=== PATIENT | male | born 1975 ===

== ENCOUNTER 2017-11-30 07:17 | Emergency (ER) | payer BC ==
--- NOTE | 2017-11-30 07:21 | UC ---
Throat Pain/Nasal Antwan HPI - HPI Summary HPI Summary: 42 year old male presents with complains of sore throat and cough. - History of Current Complaint Stated Complaint: COUGH,ST Time Seen by Provider: 11/30/17 07:21 Hx Obtained From: Patient Onset/Duration: Sudden Onset Severity: Moderate Associated Signs & Symptoms: Positive: Hoarseness Related History: Seasonal Allergies - Epiglottits Risk Factors Epiglottis Risk Factors: Negative - Allergies/Home Medications Allergies/Adverse Reactions: Allergies Allergy/AdvReac Type Severity Reaction Status Date / Time No Known Allergies Allergy Verified 11/30/17 07:28 Home Medications: Home Medications GuaiFENesin DM sugar free* [Robitussin DM sugar free*] 5 ml PO Q4H PRN 11/30/17 [History Confirmed 11/30/17] Oragrsddynepa-[id number]-Tlsmc [Nyquil Severe Cold/Flu 5-6.25-10-325 mg/15Ml] 1 liq PO BEDTIME PRN 11/30/17 [History Confirmed 11/30/17] PMH/Surg Hx/FS Hx/Imm Hx Previously Healthy: Yes - Surgical History Surgical History: None - Family History Known Family History: Positive: None - Social History Substance Use Type: None Review of Systems Constitutional: Negative Skin: Negative Eyes: Negative ENT: Sore Throat Respiratory: Cough Cardiovascular: Negative Gastrointestinal: Negative Genitourinary: Negative Motor: Negative Neurovascular: Negative Musculoskeletal: Negative Neurological: Negative Psychological: Negative All Other Systems Reviewed And Are Negative: Yes Physical Exam Triage Information Reviewed: Yes Vital Signs Reviewed: Yes Eye Exam: Normal ENT Exam: Normal Dental Exam: Normal Neck exam: Normal Neck: Positive: 1 Respiratory Exam: Normal Cardiovascular Exam: Normal Abdominal Exam: Normal Musculoskeletal Exam: Normal Neurological Exam: Normal Psychological Exam: Normal Skin Exam: Normal Throat Pain/Nasal Course/Dx - Differential Dx/Diagnosis Provider Diagnoses: sore throat. cough Discharge - Discharge Plan Condition: Stable Disposition: HOME Prescriptions: Amoxicillin/Clavulanate TAB* [Augmentin TAB 875*] 875 mg PO BID #20 tab Guaifenesin-Codeine [Cheratussin AC] 1 teasp PO Q8H PRN #120 ml MDD 15 ml PRN Reason: Cough LoraTADine TAB(NF) [Claritin 10 MG TAB(NF)] 10 mg PO DAILY #30 tab Magic M W2 Guillermo/Maal/Nyst/Lido* 5 ml SWISH SPIT QID PRN #120 ml PRN Reason: Pain Patient Education Materials: Sinusitis (ED) Referrals: Urbano Carey MD [Primary Care Provider] -
[2017-11-30 07:34] VITALS: BP 144/91
== END 2017-11-30 08:02 | disposition home or self-care (01) ==
LOC: UCCORT 07:17
DX: J02.9 Acute pharyngitis, unspecified (principal); R05 Cough
CPT/HCPCS: 87651; 99202; G0463

== ENCOUNTER 2019-09-12 12:10 | Emergency (ER) | payer BC ==
[2019-09-12 13:44] VITALS: BP 135/91
--- NOTE | 2019-09-12 13:46 | UC ---
Throat Pain/Nasal Antwan HPI - HPI Summary HPI Summary: 44 y/o male presents to the urgent care c/o sinus congestion w/ green nasal discharge, body aches, chills for the past week. Pt has a dry cough w/ B/L ear pressure and moderate green PND. He has been taken OTC sinus and Mucinex with minimal relief. Pt denies fever, but has had chills. Sinus pain and HIDALGO is 5/10. Pt denies SOB, dizziness, chest pain, abdominal pain, N/V/D. - History of Current Complaint Chief Complaint: UCRespiratory Stated Complaint: SINUS PRESSURE,COUGH,BODY ACHES Time Seen by Provider: 09/12/19 13:45 Hx Obtained From: Patient Onset/Duration: Gradual Onset, Lasting Weeks - 1 week, Still Present, Worse Since - 2 days Severity: Moderate Pain Intensity: 5 - sinus pain Pain Scale Used: 0-10 Numeric Cough: Nonproductive Associated Signs & Symptoms: Positive: Sinus Discomfort, Nasal Discharge - green. Negative: Dysphagia, Wheezing, Fever - Epiglottits Risk Factors Epiglottis Risk Factors: Negative - Allergies/Home Medications Allergies/Adverse Reactions: Allergies Allergy/AdvReac Type Severity Reaction Status Date / Time No Known Allergies Allergy Verified 09/12/19 13:39 Home Medications: Home Medications Guaifenesin/Dextromethorphan [Mucinex Dm ER 600-30 mg Tablet] 1 each PO Q12H PRN 09/12/19 [History Confirmed 09/12/19] PMH/Surg Hx/FS Hx/Imm Hx Previously Healthy: Yes Cardiovascular History: Hypertension - Pre-HTN - Surgical History Surgical History: Yes Surgery Procedure, Year, and Place: LASIK, ~2014, [place]; 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), ~2008, [place] - Family History Known Family History: Positive: Hypertension - Social History Occupation: Employed Full-time Lives: With Family Alcohol Use: Occasionally Substance Use Type: None Smoking Status (MU): Never Smoked Tobacco - Immunization History Most Recent Influenza Vaccination: not this season Review of Systems All Other Systems Reviewed And Are Negative: Yes Constitutional: Positive: Negative Skin: Positive: Negative Eyes: Positive: Negative ENT: Positive: Ear Ache - B/L ear pressure, Nasal Discharge - green, Sinus Congestion, Sinus Pain/Tenderness, Other - moderate green PND Respiratory: Positive: Cough - dry Cardiovascular: Positive: Negative Gastrointestinal: Positive: Negative Genitourinary: Positive: Negative Motor: Positive: Negative Neurovascular: Positive: Negative Musculoskeletal: Positive: Negative Neurological: Positive: Headache Psychological: Positive: Negative Is Patient Immunocompromised?: No Physical Exam - Summary Physical Exam Summary: Vitals: reviewed General: Well developed, well-nourished male patient with NAD. Head and face: Normocephalic and atraumatic, Positive tenderness over the frontal and maxillary sinuses.. Eyes: PERRLA, EOMI x 2. Normal conjunctiva. No eye discharge. ENT: Ears and TM with normal limits. Nose: edematous and erythematous nasal mucosa with with green discharge and erythematous mucosa. Pharynx with erythema, no exudate. Green PND Neck: Supple, no JVD, no carotid bruits and no lymphadenopathy. Lungs: clear, no rales, no rhonchi, no wheezes. CVS: RRR, S1 and S2 present no murmurs or gallops appreciated. Abdomen: soft nontender with positive bowel sounds. Extremities: no edema noted. Neuro: WNL. Skin: warm and dry Triage Information Reviewed: Yes Vital Signs: Initial Vital Signs Temp 98.9 F 09/12/19 13:37 Pulse 94 09/12/19 13:37 Resp 18 09/12/19 13:37 BP 135/91 09/12/19 13:37 Pulse Ox 98 09/12/19 13:37 Throat Pain/Nasal Course/Dx - Course Course Of Treatment: 44 y/o male presents to the urgent care c/o sinus congestion w/ green nasal discharge, body aches, chills for the past week. Pt has a dry cough w/ B/L ear pressure and moderate green PND. He has been taken OTC sinus and Mucinex with minimal relief. Pt denies fever, but has had chills. Sinus pain and HIDALGO is 5/10. Pt denies SOB, dizziness, chest pain, abdominal pain, N/V/D. Hx obtained. Pt with 1 week of symptoms getting worse. Pt advised on symptomatic tratment first. However he request antibiotic treatment. Pt Rx Amoxicillin PO and flonase nasal spray. Advised top take Sudafed PO to alleviate sinus congestion. Pt's BP is elevated today advised to decrease salt in diet, monitor BP and f/ u with PCP for further management. Discharge instructions explained to Pt. Advised to Return to the clinic or PCP if symptoms do not improve.Pt understood and agreed with plan of care. - Differential Dx/Diagnosis Differential Diagnosis/HQI/PQRI: Influenza, Laryngitis, Otitis Media, Pharyngitis, Sinusitis, URI Provider Diagnosis: Acute bacterial sinusitis, Elevated BP without diagnosis of hypertension Discharge ED - Sign-Out/Discharge Documenting (check all that apply): Patient Departure - D/C home All imaging exams completed and their final reports reviewed: No Studies - Discharge Plan Condition: Stable Disposition: HOME Prescriptions: Amoxicillin PO (*) [Amoxicillin 875 MG (*)] 875 mg PO BID #20 tab Fluticasone NASAL SPRAY 50MCG* [Flonase NASAL SPRAY 50MCG*] 2 spray BOTH NARES DAILY #1 btl Patient Education Materials: Sinusitis (ED) Referrals: Urbano Carey MD [Primary Care Provider] - 3 Days Additional Instructions: 1- Please increase fluid intake and rest. take full course of antibiotics to avoid resistance. Take yogurts w/ probiotics or Culturelle to protect your GI system 2-Use Flonase as directed to help drain fluid. Also buy saline drops to clear sinuses 3-Take Sudafed PO to alleviates sinus congestion 4-Please f/u w/ your PCP in 3 days if symptoms do not improve for further management and treatment 5- Your BP is elevated today. please decrease salt in your diet, monitor BP and if it continues to be elevated please f/u with your PCP for further management. - Billing Disposition and Condition Condition: STABLE Disposition: Home
== END 2019-09-12 14:09 | disposition home or self-care (01) ==
LOC: UCCORT 12:10
DX: J01.90 Acute sinusitis, unspecified (principal); B96.89 Other specified bacterial agents as the cause of diseases classified elsewhere; R03.0 Elevated blood-pressure reading, without diagnosis of hypertension; H92.03 Otalgia, bilateral
CPT/HCPCS: 99212; G0463